=== PATIENT | male | born 1945 | race Caucasian/White ===

== ENCOUNTER → 2024-04-27 | Outpatient (CLI) | payer MEDICARE, OTHER ==
[~2024-04-27] VITALS: Ht 167.6 cm; Wt 72.6 kg
[~2024-04-27] MED LIST: FERR325T24 PO; MEMA1TAB5 PO; PRAM3TAB PO; RELU120T PO; SUCR1TAB31 PO; TAMS0.4C39 PO; [UNRECOGNIZED DRUG - CODE] PO
[2024-04-27] MEDS: ADENOSINE 61 MG in GIVE UN-DILUTED 0 ML IV STA (13:15)
== END | disposition home or self-care (01) ==
LOC: XYW 11:05
PROVIDERS: ATTEND Student in an Organized Health Care Education/Training Program
DX: Z01.810 Encounter for preprocedural cardiovascular examination (principal); I48.91 Unspecified atrial fibrillation
CPT/HCPCS: 78452; A9500; J0153